=== PATIENT | male | born 1960 | race African-American/Black ===

== ENCOUNTER 2016-07-11 08:17 | Day surgery (SDC) | payer BC ==
--- NOTE | ~2016-07-11 | EGD ---
EGD REPORT [facility] [address] [place] [address] NAME: SAGAR JAQUEZ : [birth year] STATUS : REG [facility]#: [id number] AGE: 55 ADM/REG DATE : 07/11/16 MR#: [id number] REPORT SERV DATE: 07/11/16 DICTATED BY: ALYSSA RIVERA DATE: 07/11/16 REPORT STATUS : Draft TRANSCRIBED BY: [facility] DATE: 07/11/16 Endoscopy Center Patient Name: Sagar Jaquez Date of : 1960 Attending MD: JONI RIVERA MD Procedure Date No Time: 07/11/2016 Procedure: Colonoscopy Indications: High risk colon cancer surveillance: Personal history of colonic polyps Referring MD: IKE ADAMES MD, STEPHON RIVERA Medicines: See the Anesthesia note for documentation of the administered medications Complications: No immediate complications. Estimated blood loss: None. Procedure: Pre-Anesthesia Assessment: - ASA Grade Assessment: III - A patient with severe systemic disease. - Prior to the procedure, a History and Physical was performed, and patient medications and allergies were reviewed. The patient's tolerance of previous anesthesia was also reviewed. The risks and benefits of the procedure and the sedation options and risks were discussed with the patient. All questions were answered, and informed consent was obtained. Prior Anticoagulants: The patient has taken no previous anticoagulant or antiplatelet agents. After reviewing the risks and benefits, the patient was deemed in satisfactory condition to undergo the procedure. After I obtained informed consent, the scope was passed under direct vision. Throughout the procedure, the patient's blood pressure, pulse, and oxygen saturations were monitored continuously. The PCF [id number] was introduced through the anus and advanced to the terminal ileum. The ileocecal valve, appendiceal orifice, terminal ileum and rectum were photographed. The entire colon was examined. The colonoscopy was performed without difficulty. The patient tolerated the procedure well. The quality of the bowel preparation was adequate. Findings: The perianal and digital rectal examinations were normal. A sessile polyp was found in the proximal transverse colon. The polyp was 4 mm in size. The polyp was removed with a cold snare. Resection and retrieval were complete. Two sessile polyps were found in the distal transverse colon. The polyps were small in size. These polyps were removed with a cold snare. EGD REPORT [address] [place]. [address] NAME: SAGAR JAQUEZ : [birth year] STATUS : REG [facility] PAT#: [id number] AGE: 55 ADM/REG DATE : 07/11/16 MR#: [id number] REPORT SERV DATE: 07/11/16 DICTATED BY: ALYSSA RIVERA DATE: 07/11/16 REPORT STATUS : Draft [facility]ANSCRIBED BY: [facility] DATE: 07/11/16 Resection and retrieval were complete. Five sessile polyps were found in the sigmoid colon. The polyps were small in size. These polyps were removed with a cold snare. Resection and retrieval were complete. Non-bleeding internal hemorrhoids were found during retroflexion and were Grade I (internal hemorrhoids that do not prolapse). No other significant abnormalities were identified in a careful examination of the remainder of the colon. Impression: - One 4 mm polyp in the proximal transverse colon. Resected and retrieved. - Two small polyps in the distal transverse colon. Resected and retrieved. - Five small polyps in the sigmoid colon. Resected and retrieved. - Non-bleeding internal hemorrhoids. Recommendation: - Patient has a contact number available for emergencies. The signs and symptoms of potential delayed complications were discussed with the patient. Return to normal activities tomorrow. Written discharge instructions were provided to the patient. - Regular diet. - Discharge patient to home. - Continue present medications. - Await pathology results. - Repeat colonoscopy in 3 years for surveillance. Procedure Code(s): --- Professional --- 89131, Colonoscopy, flexible, proximal to splenic flexure; with removal of tumor(s), polyp(s), or other lesion(s) by snare technique Diagnosis Code(s): --- Professional --- D12.5, Benign neoplasm of sigmoid colon D12.3, Benign neoplasm of transverse colon K64.0, First degree hemorrhoids Z86.010, Personal history of colonic polyps CPT copyright 2013 [employer]. All rights reserved. The codes documented in this report are preliminary and upon commissioning specialist review may be revised to meet current compliance requirements. JONI RIVERA MD EGD REPORT [address] [address] NAME: SAGAR JAQUEZ : [birth year] STATUS : REG [facility] PAT#: [id number] AGE: 55 ADM/REG DATE : 07/11/16 MR#: [id number] REPORT SERV DATE: 07/11/16 DICTATED BY: ALYSSA RIVERA DATE: 07/11/16 REPORT STATUS : Draft TRANSCRIBED BY: [employer] [facility] DATE: 07/11/16 07/11/2016 10:56 AM This report has been signed electronically. Number of Addenda: 0 Note Initiated On: 07/11/2016 10:07 AM Scope Withdrawal Time 0 hours 16 minutes 16 seconds
--- NOTE | ~2016-07-11 | EGD ---
EGD REPORT [facility] [address] [place] [address] NAME: SAGAR JAQUEZ : [birth year] STATUS : REG [facility]#: [id number] AGE: 55 ADM/REG DATE : 07/11/16 MR#: [id number] REPORT SERV DATE: 07/11/16 DICTATED BY: ALYSSA RIVERA DATE: 07/11/16 REPORT STATUS : Draft [facility]IB[facility]: [facility] DATE: 07/11/16 Endoscopy Center Patient Name: Sagar Jaquez Date of : 1960 Attending MD: JONI RIVERA MD Procedure Date No Time: 07/11/2016 Procedure: Upper GI endoscopy Indications: Dysphagia Referring MD: IKE ADAMES MD, STEPHON RIVERA Medicines: See the Anesthesia note for documentation of the administered medications Complications: No immediate complications. Estimated blood loss: None. Procedure: Pre-Anesthesia Assessment: - ASA Grade Assessment: III - A patient with severe systemic disease. - Prior to the procedure, a History and Physical was performed, and patient medications and allergies were reviewed. The patient's tolerance of previous anesthesia was also reviewed. The risks and benefits of the procedure and the sedation options and risks were discussed with the patient. All questions were answered, and informed consent was obtained. Prior Anticoagulants: The patient has taken no previous anticoagulant or antiplatelet agents. After reviewing the risks and benefits, the patient was deemed in satisfactory condition to undergo the procedure. After obtaining informed consent, the endoscope was passed under direct vision. Throughout the procedure, the patient's blood pressure, pulse, and oxygen saturations were monitored continuously. The GIF H190 [id number] was introduced through the mouth, and advanced to the second part of duodenum. The upper GI endoscopy was accomplished without difficulty. The patient tolerated the procedure well. Findings: The examined duodenum was normal. Diffuse minimal inflammation characterized by congestion (edema) and erythema was found in the stomach. Biopsies were taken with a cold forceps for histology. The cardia and gastric fundus were normal on retroflexion. The examined esophagus was normal. A guidewire was placed and the scope was withdrawn. Dilation was performed with a Savary dilator with no resistance at 51 Fr and no resistance at 57 Fr. Estimated blood loss: none. EGD REPORT [address] [address] NAME: SAGAR JAQUEZ : [birth year] STATUS : REG [facility]#: [id number] AGE: 55 ADM/REG DATE : 07/11/16 MR#: [id number] REPORT SERV DATE: 07/11/16 DICTATED BY: ALYSSA RIVERA DATE: 07/11/16 REPORT STATUS : Draft TRANSCRIBED BY: [facility] DATE: 07/11/16 Impression: - Normal examined duodenum. - Gastritis. Biopsied. - Normal esophagus. Dilated. Recommendation: - Patient has a contact number available for emergencies. The signs and symptoms of potential delayed complications were discussed with the patient. Return to normal activities tomorrow. Written discharge instructions were provided to the patient. - Regular diet. - Discharge patient to home. - Continue present medications. - Await pathology results. Procedure Code(s): --- Professional --- 32411, Esophagogastroduodenoscopy, flexible, transoral; with insertion of guide wire followed by passage of dilator(s) through esophagus over guide wire 88195, Esophagogastroduodenoscopy, flexible, transoral; with biopsy, single or multiple Diagnosis Code(s): --- Professional --- K29.70, Gastritis, unspecified, without bleeding R13.10, Dysphagia, unspecified CPT copyright 2013 [employer]. All rights reserved. The codes documented in this report are preliminary and upon liner worker review may be revised to meet current compliance requirements. JONI RIVERA MD 07/11/2016 10:29 AM This report has been signed electronically. Number of Addenda: 0 Note Initiated On: 07/11/2016 10:14 AM Scope Withdrawal Time 0 hours 0 minutes 0 seconds
[~2016-07-11 08:17] MED LIST: CYMBALTA60 PO; IMU PO; NEUR800 PO; NORCO1 TAB PO; PYRID60 PO; VOLT75 PO
== END 2016-07-11 23:59 | disposition home or self-care (01) ==
LOC: DMU 08:17
PROVIDERS: Internal Medicine Gastroenterology
PROC: 0D757ZZ Dilation of Esophagus, Via Natural or Artificial Opening (ICD-10-PCS; 2016-07-11)
PROC: 0DBL8ZZ Excision of Transverse Colon, Via Natural or Artificial Opening Endoscopic (ICD-10-PCS; principal; 2016-07-11 10:30)
PROC: 0DBN8ZZ Excision of Sigmoid Colon, Via Natural or Artificial Opening Endoscopic (ICD-10-PCS; 2016-07-11 10:30)
PROC: 0DB68ZZ Excision of Stomach, Via Natural or Artificial Opening Endoscopic (ICD-10-PCS; 2016-07-11 10:30)
DX: Z12.11 Encounter for screening for malignant neoplasm of colon (principal); D12.3 Benign neoplasm of transverse colon; K63.5 Polyp of colon; K64.0 First degree hemorrhoids; F32.9 Major depressive disorder, single episode, unspecified; F17.210 Nicotine dependence, cigarettes, uncomplicated; G70.00 Myasthenia gravis without (acute) exacerbation; Z86.19 Personal history of other infectious and parasitic diseases; Z86.010 Personal history of colon polyps; Z79.899 Other long term (current) drug therapy; Z79.891 Long term (current) use of opiate analgesic; Z98.890 Other specified postprocedural states
CPT/HCPCS: 88305